=== PATIENT | female | born 1945 | race Caucasian/White ===

== ENCOUNTER 2021-03-23 08:41 | Emergency (ER) | payer MEDICARE ==
[~2021-03-23] VITALS: Ht 157.5 cm; Wt 68.1 kg
[2021-03-23 08:50] VITALS: BP 148/79
[2021-03-23] MEDS ORDERED: HYDROcodone/APAP 5/325MG 1 TAB TABLET PO ONE (09:15)
[2021-03-23] MEDS ORDERED: DIPH,PERTUSS(ACELL),TET VAC/PF 0.5 ML SYRINGE. VAX IM ONE (09:15)
[2021-03-23] MEDS ORDERED: OXYC5TAB2 PO (09:23)
[2021-03-23] MEDS ORDERED: OXYC5CAP PO ×3 (09:25→11:02)
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
[2021-03-23] MEDS ORDERED: OXYC5TAB4 PO ×3 (09:40→09:45)
== END 2021-03-23 10:00 | disposition home or self-care (01) ==
LOC: ER 08:41
DX: T24.202A Burn of second degree of unspecified site of left lower limb, except ankle and foot, initial encounter (principal); I10 Essential (primary) hypertension; X19.XXXA Contact with other heat and hot substances, initial encounter; Y93.89 Activity, other specified; Y92.89 Other specified places as the place of occurrence of the external cause; Y99.8 Other external cause status
CPT/HCPCS: 16020; 90471; 90715; 99283